=== PATIENT | female | born 1955 | race Caucasian/White ===

== ENCOUNTER 2016-09-04 22:36 | Inpatient (IN) | payer OTHER, MEDICAID ==
[~2016-09-04] VITALS: Ht 165.1 cm; Wt 81.6 kg
[~2016-09-04 22:36] MED LIST: ACET-868 PO; ATOR10TA PO; CLON0.1T PO; DIPH25CA6 PO; DOCU240C26 PO; IPRA3AMP IH; LEVO125T8 PO; MAGN400O6 PO; METH10TA2 PO; NIAC1000 PO; NICO1PAT25 TD; NITR0.4T6 SL; NYST5ORA PO; OXYB5TAB PO; OXYC-34 PO; QUET200T PO; RIVA10TA PO
--- NOTE | 2016-09-04 22:55 | NUR ---
To bed 6 61 yo female bibra, per ems patient was "ALTERED/STRIKING NAKED BEFORE STAFF." Patient is noted to be yelling, restless, agitated, nondirectable/does not follow commands, incoherent, verbalizing incomprehensible words. Safety measures initiated. Reorientation done to no avail. Gowned. cardiac monitor on. VSS. Nondiaphoretic. Afebrile. Awaiting for er md gonzalez.
[2016-09-04] MEDS ORDERED: LORAZEPAM INJ 2 MG/ML VIAL ONE (23:27)
[2016-09-04] MEDS ORDERED: LORAZEPAM INJ 2 MG/ML VIAL IM ONE (23:30)
[2016-09-04 23:37] LABS: BASOPHILS % (AUTO) 0.2 % (0.0-2.0); HEMATOCRIT 55 % (33-45); HEMOGLOBIN 17.8 g/dL (11.5-14.8); LYMPHOCYTES # (AUTO) 1.4 /CMM (0.8-4.8); LYMPHOCYTES % (AUTO) 9.2 % (20.0-44.0); MEAN CORPUSCULAR HEMOGLOBIN 31 PG (26.0-33.0); MEAN CORPUSCULAR HGB CONC 33 g/dl (31.0-36.0); MEAN CORPUSCULAR VOLUME 96 fL (82-100); MONOCYTES # (AUTO) 0.9 /CMM (0.1-1.30); MONOCYTES % (AUTO) 6.1 % (2.0-12.0); NEUTROPHILS # (AUTO) 12.7 /CMM (1.8-8.9); NEUTROPHILS % (AUTO) 84.5 % (43.0-81.0); PLATELET COUNT (AUTO) 381 /CMM (150-450); RDW COEFFICIENT OF VARIATION 14.8 (11.5-15.0); RED BLOOD CELL COUNT(AUTO) 5.71 MIL/uL (4.0-5.2)
[2016-09-04 23:51] LABS: CALCIUM, SERUM 10.2 mg/dL (8.5-10.1); CARBON DIOXIDE 27 mmol/L (21-32); CHLORIDE 97 mmol/L (98-107); CREATININE 0.8 mg/dL (0.6-1.3); GFR 73 mL/min (>60); GLUCOSE 139 mg/dL (74-106); POTASSIUM 3.8 mmol/L (3.5-5.1); SODIUM SERUM 135 mmol/L (136-145); UREA NITROGEN, BLOOD 13 mg/dL (7-18)
[2016-09-04 23:51] LABS: PHENCYCLIDINE SCREEN,URINE NEGATIVE (NEGATIVE)
[2016-09-04 23:56] LABS: CANNABINOID, URINE POSITIVE (NEGATIVE)
[2016-09-04 23:57] LABS: ACETAMINOPHEN 0 ug/ml (10-30); ALANINE AMINOTRANSFERASE 15 U/L (12-78); ALBUMIN 4.2 g/dL (3.4-5.0); ALCOHOL, BLOOD < 3 mg/dL (0-0); ALKALINE PHOSPHATASE 113 U/L (46-116); ASPARTATE AMINOTRANSFERASE 22 U/L (15-37); BILIRUBIN,DIRECT 0.1 mg/dL (0.0-0.2); BILIRUBIN,TOTAL 0.7 mg/dL (0.2-1.0); SALICYLATE 6.9 mg/dL (2.8-20.0); TOTAL PROTEIN, SERUM 8.2 g/dL (6.4-8.2)
[2016-09-04 23:58] LABS: APPEARANCE,URINE SL CLOUDY (CLEAR); BILIRUBIN,URINE 1+ (NEGATIVE); BLOOD, URINE 1+ Ery/uL (NEGATIVE); COLOR,URINE YELLOW (YELLOW); KETONES,URINE 2+ (NEGATIVE); LEUKOCYTE ESTERASE ,URINE NEGATIVE (NEGATIVE); NITRITE, URINE NEGATIVE (NEGATIVE); PROTEIN,URINE 2+ mg/dl (NEGATIVE); UGLUCOSE NEGATIVE (NEGATIVE); UROBILINOGEN,URINE 0.2 EU/dL (0.2)
[2016-09-04] MEDS ORDERED: HALOPERIDOL LACTATE INJ 5 MG/ML VIAL ONE (23:58)
[2016-09-05 00:09] LABS: ADD URINE CULTURE NO; BACTERIA,URINE None seen /HPF (None Seen); MUCUS,URINE Few /LPF (None Seen); SQUAMOUS EPITHELIAL CELL,UR Few /HPF (None Seen); WBC,URINE 0-2 /HPF (0-3)
--- NOTE | 2016-09-05 00:17 | NUR ---
xr at bedside.
--- NOTE | 2016-09-05 00:22 | NUR ---
patient went to ct.
[2016-09-05] MEDS ORDERED: diphenhydrAMINE HCL 50 MG/ML VIAL ONE ×2 (01:43→03:13)
[2016-09-05] MEDS ORDERED: LORAZEPAM INJ 2 MG/ML VIAL ONE ×2 (01:59→02:51)
[2016-09-05] MEDS ORDERED: diphenhydrAMINE HCL 50 MG/ML VIAL IV ONE ×2 (02:00→03:30)
[2016-09-05] MEDS ORDERED: LORAZEPAM INJ 2 MG/ML VIAL IV ONE ×2 (02:30→03:00)
[2016-09-05] MEDS ORDERED: HALOPERIDOL LACTATE INJ 5 MG/ML VIAL IM ONE ×2 (02:30)
[2016-09-05] MEDS ORDERED: HALOPERIDOL LACTATE INJ 5 MG/ML VIAL ONE (02:36)
--- NOTE | 2016-09-05 02:39 | NUR ---
DR. ELIZABETH REQUESTING REPEAT CT HEAD, PT STILL AGITATED, WILL CALL WHEN PT READY/SEDATED.
--- NOTE | 2016-09-05 03:19 | NUR ---
patient noted being restless, getting out of bed, nondirectable, yelling. Meds given as order by Dr Desouza. Close VSS monitoring ongoing.
[2016-09-05] MEDS ORDERED: MIDAZOLAM HCL 5 MG/5ML VIAL ONE (03:52)
[2016-09-05] MEDS ORDERED: MIDAZOLAM HCL 2 MG/2ML VIAL IV ONE (04:00)
--- NOTE | 2016-09-05 04:12 | NUR ---
CT scan of head wo contrast completed under moderate sedation, Versed 5mg IVP given. RT, 2 RN's, [address] Desouza in the room. No incident noted. Patent airway maintain. O2 inhalation at 4lpm via nc harjinder well, Ongoing VSS monitoring.
--- NOTE | 2016-09-05 04:17 | NUR ---
patient back to er bed [address] scan, ongoing VSS monitoring.
[2016-09-05] MEDS ORDERED: GABA-534 PO (05:14)
[2016-09-05] MEDS ORDERED: ALBU8.5H2 INH (05:14)
[2016-09-05] MEDS ORDERED: METH10OR11 PO (05:14)
[2016-09-05] MEDS ORDERED: DULO20CA PO (05:14)
[2016-09-05] MEDS ORDERED: ATOR40TA PO (05:14)
[2016-09-05] MEDS ORDERED: MUPI15CR12 TP (05:14)
[2016-09-05] MEDS ORDERED: IBUP-1482 PO (05:14)
[2016-09-05] MEDS ORDERED: CLOB15CR5 TP (05:14)
[2016-09-05] MEDS ORDERED: RIVA10TA PO (05:14)
[2016-09-05] MEDS ORDERED: CLON0.5T4 PO (05:14)
[2016-09-05] MEDS ORDERED: LACT10SO PO (05:14)
[2016-09-05] MEDS ORDERED: LEVO137T24 PO (05:14)
[2016-09-05] MEDS ORDERED: DOCU-25 PO (05:14)
[2016-09-05] MEDS ORDERED: FLUT1BLS IH (05:14)
[2016-09-05] MEDS ORDERED: OXYBUTYNIN PO (05:14)
[2016-09-05] MEDS ORDERED: DIVA250T6 PO (05:14)
[2016-09-05] MEDS ORDERED: NITR0.3T SL (05:14)
[2016-09-05] MEDS ORDERED: PHEN473S12 PO (05:14)
--- NOTE | 2016-09-05 05:15 | NUR ---
Report given to Yoly DOLAN for [facility].
[2016-09-05 05:30] VITALS: BP 153/95
--- NOTE | 2016-09-05 05:30 | NUR ---
RN- RECEIVED REPORT FROM KELSI CARRIZALES. PT IS DX W/ AMS DUE TO STRIKING AT [facility] STAFF AND TAKING OFF CLOTHES. ACCORDING TO RN, PT HAS BEEN UPGRADED TO [facility] STATUS DUE TO HIGH BP LEVEL W/ SBP'S IN THE 200 WHEN PT WAS BROUGHT UP IN 3W. VS TAKEN BP - 153/95 , HR 95, O2 SAT 92% ON RA AND RESP OF 12. PT IS CONFUSED, UNCOOPERATIVE, AND UNABLE TO FOLLOW COMMANDS. ANSWERS QUESTIONS INAPPROPRIATELY. ABLE TO MOVE LIMBS INDEPENDENTLY. PERRLA. R THUMB 22G PATENT AND INTACT. PLACED PT ON MONITOR W/ SR 90S. NO S/SX OF RESP DISTRESS NOTED. WILL MONITOR PT ACCORDINGLY
--- NOTE | 2016-09-05 05:39 | NUR ---
Transported to [facility] rm 113-2 under als protocol, Report given to Ethan DOLAN at bedside. Spontaneous movements seen in patient. No incident noted.
[2016-09-05] MEDS ORDERED: QUET100T PO (06:09)
[2016-09-05] MEDS ORDERED: MIRT30TA7 PO (06:09)
[2016-09-05] MEDS ORDERED: QUET400T PO (06:09)
[2016-09-05 08:00] VITALS: BP 187/100
[2016-09-05 08:02] LABS: BASOPHILS % (AUTO) 0.3 % (0.0-2.0); HEMATOCRIT 55 % (33-45); HEMOGLOBIN 18.3 g/dL (11.5-14.8); LYMPHOCYTES # (AUTO) 1.8 /CMM (0.8-4.8); LYMPHOCYTES % (AUTO) 13.1 % (20.0-44.0); MEAN CORPUSCULAR HEMOGLOBIN 32 PG (26.0-33.0); MEAN CORPUSCULAR HGB CONC 33 g/dl (31.0-36.0); MEAN CORPUSCULAR VOLUME 96 fL (82-100); MONOCYTES # (AUTO) 1.3 /CMM (0.1-1.30); MONOCYTES % (AUTO) 9.6 % (2.0-12.0); NEUTROPHILS # (AUTO) 10.5 /CMM (1.8-8.9); PLATELET COUNT (AUTO) 321 /CMM (150-450); RDW COEFFICIENT OF VARIATION 14.8 (11.5-15.0); WHITE BLOOD COUNT (AUTO) 13.7 K/uL (4.3-11.0)
[2016-09-05 08:24] LABS: ALBUMIN 4.1 g/dL (3.4-5.0); BILIRUBIN,TOTAL 0.8 mg/dL (0.2-1.0); CALCIUM, SERUM 9.7 mg/dL (8.5-10.1); CREATININE 0.8 mg/dL (0.6-1.3); POTASSIUM 3.2 mmol/L (3.5-5.1)
[2016-09-05] MEDS ORDERED: CLONIDINE HCL 0.1 MG TABLET PO PRN (09:00)
[2016-09-05] MEDS ORDERED: IV SET PRIMARY PUMP SET 1 EA INFUS.SET MC ONE (09:31)
[2016-09-05 09:33] LABS: BAND % (MANUAL) 2 % (0.0-5.0); BASOPHILS % (MANUAL) 0 % (0.0-2.0); EOSINOPHILS % (MANUAL) 0 % (0-4); LYMPHOCYTES % (MANUAL) 11 % (16-48); MONOCYTES % (MANUAL) 7 % (0-11.0); NEUTROPHILS % (MANUAL) 80 (42-76)
[2016-09-05 09:34] LABS: PLATELET ESTIMATE ADEQUATE
[2016-09-05 09:48] LABS: THYROID STIMULATING HORMONE 8.346 uIU/mL (0.358-3.74)
[2016-09-05] MEDS ORDERED: Z GUARD REMEDY 2 OZ OINT TP PRN (10:00)
--- NOTE | 2016-09-05 10:00 | NUR ---
WOUND CARE CONSULT: PATIENT SEEN AND SKIN ASSESSMENT DONE. SITTER AT THE BEDSIDE. PATIENT WITH ALTERED MENTAL STATUS, INDEPENDENT WITH BED MOBILITY, INCONTINENT, JAVIER 15. PATIENT PRESENTS ON ADMISSION WITH SKIN INTACT AT THIS TIME. RECOMMEND KEEP SKIN CLEAN AND DRY, MOISTURE PROTECTION WITH Z GUARD ORDERED DISCUSSED WITH NURSING STAFF. MD IN AGREEMENT WITH PLAN OF CARE.
[2016-09-05] MEDS: QUETIAPINE FUMARATE 100 MG TABLET PO SCH ×2 (11:11→22:16)
[2016-09-05] MEDS: AMLODIPINE BESYLATE 5 MG TABLET PO SCH (11:11)
[2016-09-05 12:00] VITALS: BP 151/95
[2016-09-05 16:00] VITALS: BP 145/85
[2016-09-05 20:00] VITALS: BP 130/75
--- NOTE | 2016-09-05 20:00 | NUR ---
RN INITIAL NOTES RECEIVED PT ASLEEP ON BED, EASILY AROUSABLE TO NAME AND TOUCH. PT IS VERY CONFUSED AND BECOMES AGITATED WHEN AWAKE. ON ROOM AIR, NO S/S OF RESP DISTRESS, SATURATING WELL. CURRENTLY SR ON THE MONITOR, HR 70-80'S. ON DIAPERS ONLY. RIGHT THUMB 20G WITH KCL 20MEQ IN 1/2NS @ 100MLS/HR, FLUSHED AND PATENT, NO S/S OF INFILTRATION/INFECTION, DRESSING CDI. BED LOW AND LOCKED, ALARM ON, SIDERAILS UP. 1:1 SITTER FOR THE PATIENT. WILL MONITOR
--- NOTE | 2016-09-05 21:10 | NUR ---
PT AGITATED, RESTLESS, SCREAMING AND TRYING TO GET OUT OF BED, CURRENTLY REFUSING SEROQUEL 25 MG PO. 1:1 SITTER REMAINS AT BEDSIDE. CALLED DR. VANEGAS AND OBTAINED ORDER FOR ZYPREXA 2.5 MG IM NOW (OK TO REPEAT DOSE IF FIRST DOSE IS INEFFECTIVE). ORDER PLACED. PRIMARY NURSE NAIN MADE AWARE. WILL CONTINUE TO MONITOR.
[2016-09-05] MEDS ORDERED: OLANZAPINE 10 MG VIAL IM ONE (21:30)
[2016-09-06] VITALS: BP 135/94
[2016-09-06] MEDS ORDERED: OLANZAPINE 10 MG VIAL IM ONE (03:49)
--- NOTE | 2016-09-06 03:50 | NUR ---
RN NOTES PT IS NOW VERY AGITATED, SCREAMING, AND COMBATIVE. WILL ADMINISTER THE ONE TIME ORDER OF ZYPREXA IM 25MG TO THE PATIENT
[2016-09-06 04:00] VITALS: BP 142/95
--- NOTE | 2016-09-06 06:30 | NUR ---
RN CLOSING NOTES PT REMAINS TO BE VERY CONFUSED AND AGITATED. AM CARE PROVIDED. WILL ENDORSE TO AM RN
--- NOTE | 2016-09-06 07:51 | NUR ---
INITIAL [facility] RN NOTE RCVD PT AWAKE AND ALERT, YELLING, APPEARS RESTLESS. SR ON TELE MONITOR HR 68. PT HAS SITTER AT BEDSIDE FOR SAFETY. RIGHT THUMB IV SITE. PT REFUSING ORDERED IVF. WILL CONTINUE TO MONITOR PT FOR SAFETY AND COMFORT. CALL LIGHT WITHIN REACH. BED IN LOW AND LOCKED POSITION.
[2016-09-06 08:00] VITALS: BP 163/92
[2016-09-06] MEDS ORDERED: ACETAMINOPHEN 325 MG TABLET PO PRN (08:30)
[2016-09-06] MEDS ORDERED: LORAZEPAM INJ 2 MG/ML VIAL IV PRN (09:00)
[2016-09-06 09:01] LABS: BASOPHILS # (AUTO) 0.1 /CMM (0.0-0.2); BASOPHILS % (AUTO) 0.7 % (0.0-2.0); EOSINOPHILS # (AUTO) 0.1 /CMM (0.0-0.7); EOSINOPHILS % (AUTO) 0.5 % (0.0-6.0); HEMATOCRIT 52 % (33-45); HEMOGLOBIN 17.2 g/dL (11.5-14.8); LYMPHOCYTES # (AUTO) 1.8 /CMM (0.8-4.8); LYMPHOCYTES % (AUTO) 15.9 % (20.0-44.0); MEAN CORPUSCULAR HEMOGLOBIN 32 PG (26.0-33.0); MEAN CORPUSCULAR HGB CONC 33 g/dl (31.0-36.0); MEAN CORPUSCULAR VOLUME 95 fL (82-100); MONOCYTES # (AUTO) 0.8 /CMM (0.1-1.30); NEUTROPHILS # (AUTO) 8.6 /CMM (1.8-8.9); NEUTROPHILS % (AUTO) 75.9 % (43.0-81.0); PLATELET COUNT (AUTO) 317 /CMM (150-450); RDW COEFFICIENT OF VARIATION 14.6 (11.5-15.0); RED BLOOD CELL COUNT(AUTO) 5.41 MIL/uL (4.0-5.2); WHITE BLOOD COUNT (AUTO) 11.3 K/uL (4.3-11.0)
[2016-09-06 09:10] LABS: CALCIUM, SERUM 9.3 mg/dL (8.5-10.1); CREATININE 0.8 mg/dL (0.6-1.3); POTASSIUM 3.7 mmol/L (3.5-5.1)
[2016-09-06] MEDS ORDERED: POTASSIUM CHLORIDE 20 MEQ TAB.PRT.SR PO ONE (09:30)
[2016-09-06] MEDS: AMLODIPINE BESYLATE 5 MG TABLET PO SCH (09:53)
[2016-09-06] MEDS ORDERED: MAG HYDROX/AL HYDROX/SIMETH 30 ML UDC PO PRN (11:30)
[2016-09-06] MEDS ORDERED: ONDANSETRON HCL/PF 4 MG/2 ML VIAL IV PRN (11:30)
--- NOTE | 2016-09-06 11:41 | NUR ---
[facility] RN NOTE PT C/O ABDOMINAL PAIN, NAUSE. DR. VANEGAS INFORMED. RCVD ORDERS FOR PRN ZOFRAN AND MAALOX.
[2016-09-06 12:00] VITALS: BP 139/76
[2016-09-06] MEDS ORDERED: OLANZAPINE 5 MG/TAB.RAPDIS PO SCH (14:30)
[2016-09-06] MEDS ORDERED: HALOPERIDOL LACTATE INJ 5 MG/ML VIAL IM PRN (14:30)
[2016-09-06 16:00] VITALS: BP 155/86
--- NOTE | 2016-09-06 18:02 | NUR ---
MS RN NOTE PT AWAKE AND ALERT TO SELF, SHOWING NO S/O DISTRESS, SITTER AT BEDSIDE FOR SAFETY. PT RE-ORIENTED TO PLACE, SITUATION AND TIME THROUGHOUT THE DAY. PSYCH EVAL COMPLETED. CRISIS TEAM CALLED IN. PT ASSESSED BY CRISIS ADMITTING COORDINATOR. PENDING POSSIBLE ADMISSION TO [facility]. DR. VANEGAS AWARE AND AGREES TO TRANSFER PT IF ACCEPTED. PT'S CARE WILL BE ENDORSED TO IN HOUSE COUNSEL RN FOR CONTINUITY OF CARE AT CHANGE OF SHIFT. BED IN LOW AND LOCKED POSITION. CALL LIGHT WITHIN REACH.
[2016-09-06 19:30] VITALS: BP 120/89
--- NOTE | 2016-09-06 19:30 | NUR ---
MS DOLAN INITIAL NOTES RECEIVED PATIENT YELLING, WALKING AROUND, DEMANDING. PATIENT AWAKE, A/OX1, AMBULATORY WITH STEADY GAIT. CONFUSED OF WHERE SHE IS. SITTER WITH PATIENT. ASSISTED PATIENT BACK INTO ROOM. REORIENTED PATIENT. PATIENT DENIES PAIN OR DISCOMFORT. DENIES SOB. SKIN WARM AND DRY TO TOUCH. WITH LH IV SITE PATENT AND INTACT. SIDE RAILS UP AND LOCKED. BED KEPT AT LOWEST POSITION. CALL LIGHT KEPT WITHIN EASY REACH. SITTER AT BEDSIDE. WILL CONTINUE TO MONITOR. Addendum: 09/06/16 at 2207 by SUGAR SANCHEZ RN PATIENT ON 5150 HOLD, PER REPORT PATIENT PENDING TRANSFER TO GPS.
--- NOTE | 2016-09-06 20:24 | NUR ---
PATIENT NOTED UP AND WALKING AROUND, YELLING AT NURSES STATION. DEMANDED TO CALL HER BOYFRIEND, OFFERED PATIENT PHONE BUT PATIENT DOES NOT REMEMBER NUMBER AND DEMANDS TO GET NUMBER FOR HER BOYFRIEND. PRN ATIVAN GIVEN. WILL CONTINUE TO MONITOR.
--- NOTE | 2016-09-06 20:30 | NUR ---
MS RN CLOSING NOTES PATIENT TRANSFERRED TO GPS, ASSISTED PATIENT VIA WHEELCHAIR. PATIENT IN STABLE CONDITION. IV REMOVED WITH NO COMPLICATIONS. PATIENT ON [address] LI. REPORT WAS GIVEN TO GLENN.
--- NOTE | 2016-09-06 21:35 | NUR ---
SPOKE WITH DR. VANEGAS INFORMED REGARDING PATIENTS TRANSFER WITH ORDERS TO CONTINUE ALL INPATIENT MEDICATIONS.
[2016-09-06] MEDS ORDERED: QUETIAPINE FUMARATE 100 MG TABLET PO SCH (22:00)
[2016-09-07] MEDS ORDERED: CLON0.1T14 PO (07:37)
[2016-09-07] MEDS ORDERED: MAG30ORA PO (07:37)
[2016-09-07] MEDS ORDERED: ONDA4TAB5 PO (07:37)
[2016-09-07] MEDS ORDERED: HALO5VIA12 IM (07:37)
[2016-09-07] MEDS ORDERED: QUET300T2 PO (07:37)
[2016-09-07] MEDS ORDERED: ACET-868 PO (07:37)
[2016-09-07] MEDS ORDERED: OLAN5TAB3 PO (07:37)
[2016-09-07] MEDS ORDERED: AMLO5TAB4 PO (07:37)
[2016-09-07] MEDS ORDERED: OLANZAPINE 5 MG/TAB.RAPDIS PO SCH (09:00)
== END 2016-09-06 21:00 | DRG 885 ==
LOC: ER 22:40 → TELE1 09-05 05:20 → TELE-TD 09-05 05:35 → MEDSG1 09-06 15:47
PROVIDERS: ADMIT Internal Medicine; ATTEND Internal Medicine
DX: F31.9 Bipolar disorder, unspecified (principal); F29 Unspecified psychosis not due to a substance or known physiological condition; I10 Essential (primary) hypertension; J44.9 Chronic obstructive pulmonary disease, unspecified; E03.9 Hypothyroidism, unspecified; Z86.73 Personal history of transient ischemic attack (TIA), and cerebral infarction without residual deficits; G89.29 Other chronic pain; D72.829 Elevated white blood cell count, unspecified
CPT/HCPCS: 36415; 70450-TC; 71010-TC; 80048-TC; 80053-TC; 80076-TC; 80305; 81000-TC; 84443-TC; 85025-TC; A4606; G0480; G6039-TC; J1200; J1630; J2060; J2250; J3480; J3490; Z7610

== ENCOUNTER 2016-09-06 21:12 | Inpatient (IN) | payer OTHER, MEDICAID ==
[~2016-09-06] VITALS: Ht 165.1 cm; Wt 82.1 kg
[2016-09-06 20:00] VITALS: BP 120/89
--- NOTE | 2016-09-06 20:30 | NUR ---
ADMITTED THIS 61Y/O FEMALE PATIENT FROM [facility]. PATIENT IS ON 5150 HOLD FOR GRAVELY DISABLED. PER HOLD PATIENT IS AGITATED, DISORGANIZED, CONFUSED. PATIENT STATED [place], THEN STATED SHE LIVES IN A PSYCHIATRIC FACILITY. PT UNABLE TO CARE FOR SELF. UPON FACE TO FACE ASSESSMENT. PATIENT IS A&OX2, AMBULATORY, DISORGANIZED, NEEDY, DEMANDING, ANXIOUS. V/S STABLE. RESPIRATION EVEN AND UNLABORED. NO SOB. PATIENT PSYCH DX OF PSYCHOSIS. MEDICAL DX OF HTN, HYPOTHYROID, COPD, ASTHMA, BREAST CANCER. HX OF DEPRESSION AND BIPOLAR. PATIENT IS UNDER THE PSYCHIATRIC CARE OF DR LI AND THE MEDICAL CARE OF DR VANEGAS. PATIENT BELONGINGS WERE INVENTORIED AND CHECKED FOR CONTRABAND. NO CONTRABAND. MRSA DONE. SKIN/BODY ASSESSMENT DONE. SKIN CLEAR AND INTACT. ALL NEEDS ATTENDED AND ANTICIPATED. BED IN LOW AND LOCKED POSITION. SIDERAILS UPX2. CALL CASTLE WITHIN REACH. WILL CONTINUE TO MONITOR FOR SAFETY AND BEHAVIOR [id number]. Addendum: 09/07/16 at 0153 by GLENN GONZALES RN VERIFIED ORDERS WITH DR. VANEGAS.
[~2016-09-06 21:12] MED LIST changes: -ACET-868 PO; +ALBU8.5H2 INH; +CLOB15CR5 TP; -CLON0.1T PO; -DIPH25CA6 PO; +DIVA250T6 PO; +DOCU-25 PO; -DOCU240C26 PO; +DULO20CA PO; +FLUT1BLS IH; +GABA-534 PO; +IBUP-1482 PO; -IPRA3AMP IH; +LACT10SO PO; -LEVO125T8 PO; +LEVO137T24 PO; -MAGN400O6 PO; +METH10OR11 PO; -METH10TA2 PO; +MIRT30TA7 PO; +MUPI15CR12 TP; -NIAC1000 PO; -NICO1PAT25 TD; +NITR0.3T SL; -NITR0.4T6 SL; -NYST5ORA PO; -OXYB5TAB PO; +OXYBUTYNIN PO; -OXYC-34 PO; +PHEN473S12 PO; +QUET100T PO; -QUET200T PO
[2016-09-06] MEDS ORDERED: MAGNESIUM HYDROXIDE 30 ML UDC PO PRN (21:30)
[2016-09-06] MEDS ORDERED: ACETAMINOPHEN 325 MG TABLET PO PRN (21:30)
[2016-09-06] MEDS ORDERED: MAG HYDROX/AL HYDROX/SIMETH 30 ML UDC PO PRN (21:30)
[2016-09-06] MEDS ORDERED: CLONIDINE HCL 0.1 MG TABLET PO PRN (22:30)
[2016-09-06] MEDS ORDERED: ONDANSETRON HCL 4 MG/5 ML SOLUTION PO PRN (22:30)
[2016-09-06] MEDS ORDERED: TEMAZEPAM 7.5 MG CAPSULE ONE (22:43)
[2016-09-06] MEDS ORDERED: clonazePAM 0.5 MG TABLET ONE (22:48)
[2016-09-06] MEDS: TEMAZEPAM 7.5 MG CAPSULE PO PRN (23:11)
[2016-09-07] MEDS: clonazePAM 0.5 MG TABLET PO PRN ×2 (00:58→12:00)
[2016-09-07 01:12] VITALS: BP 156/91
[2016-09-07] MEDS ORDERED: CLON0.1T14 PO (07:37)
[2016-09-07] MEDS ORDERED: HALO5VIA12 IM (07:37)
[2016-09-07] MEDS ORDERED: MAG30ORA PO (07:37)
[2016-09-07] MEDS ORDERED: ONDA4TAB5 PO (07:37)
[2016-09-07] MEDS ORDERED: QUET300T2 PO (07:37)
[2016-09-07] MEDS ORDERED: AMLO5TAB4 PO (07:37)
[2016-09-07] MEDS ORDERED: OLAN5TAB3 PO (07:37)
[2016-09-07] MEDS ORDERED: ACET-868 PO (07:37)
[2016-09-07 08:17] VITALS: BP 152/81
[2016-09-07] MEDS ORDERED: CLONIDINE HCL 0.1 MG TABLET PO PRN (08:30)
[2016-09-07] MEDS ORDERED: ACETAMINOPHEN 325 MG TABLET PO PRN (08:30)
[2016-09-07] MEDS ORDERED: IBUPROFEN 800 MG TABLET PO PRN (08:30)
[2016-09-07] MEDS ORDERED: Medication Not On Formulary EA (Ondansetron Hcl (Zofran) 4 MG) PO PRN (08:30)
[2016-09-07] MEDS ORDERED: NITROGLYCERIN 0.4 MG/TAB BOTTLE SL PRN (08:30)
[2016-09-07] MEDS ORDERED: MAG HYDROX/AL HYDROX/SIMETH 30 ML UDC PO PRN (08:30)
[2016-09-07] MEDS ORDERED: CODEINE/PROMETHAZINE HCL 5 ML UDC PO PRN (08:30)
[2016-09-07] MEDS ORDERED: DIVALPROEX SODIUM 250 MG TABLET.DR PO SCH (09:00)
[2016-09-07] MEDS ORDERED: DULOXETINE HCL 20 MG CAPSULE.DR PO SCH (09:00)
[2016-09-07] MEDS ORDERED: AMLODIPINE BESYLATE 5 MG TABLET PO SCH (09:00)
[2016-09-07] MEDS ORDERED: DOCUSATE SODIUM 100 MG CAPSULE PO SCH (09:00)
[2016-09-07] MEDS: OXYBUTYNIN CHLORIDE 5 MG TABLET PO SCH (09:50)
[2016-09-07] MEDS: LEVOTHYROXINE SODIUM 137 MCG TABLET PO SCH (09:50)
[2016-09-07] MEDS: AMLODIPINE BESYLATE 5 MG TABLET PO SCH (09:50)
[2016-09-07 10:25] LABS: ALBUMIN 3.7 g/dL (3.4-5.0); BILIRUBIN,TOTAL 0.6 mg/dL (0.2-1.0); CALCIUM, SERUM 9.1 mg/dL (8.5-10.1); CREATININE 0.7 mg/dL (0.6-1.3); TOTAL PROTEIN, SERUM 7.2 g/dL (6.4-8.2)
[2016-09-07] MEDS: DOCUSATE SODIUM 250 MG CAPSULE PO SCH ×2 (10:38→17:08)
--- NOTE | 2016-09-07 11:13 | NUR ---
DR. GOODEN GAVE AN ORDER FOR THE DENIAL RIGHTS FOR ROOM SEARCH TO LOOK FOR THE MISSING CORDLESS PHONES.
--- NOTE | 2016-09-07 12:01 | NUR ---
GPS RN: PATIENT IS RESTLESS, ANXIOUS, YELLING, UNABLE TO REDIRECT. CLONAZEPAM 0.5MG ADMINISTERED PO ORDERED, PROVIDED WITH CALM AND SAFE ENVIRONMENT, VSS, CONTINUE TO MONITOR.
[2016-09-07] MEDS ORDERED: ALBUTEROL FS 2.5 MG/3 ML VIAL.NEB NEB PRN (13:30)
[2016-09-07 16:18] VITALS: BP 158/94
[2016-09-07] MEDS ORDERED: METHADONE HCL 10 MG TABLET PO SCH (17:00)
[2016-09-07] MEDS: CLOBETASOL 0.05% CREAM 15 GM TUBE TP SCH (17:00)
[2016-09-07] MEDS: METHADONE HCL 10 MG TABLET PO SCH (17:09)
[2016-09-07] MEDS: OLANZAPINE 5 MG/TAB.RAPDIS PO SCH (17:09)
[2016-09-07] MEDS: RIVAROXABAN 10 MG TABLET PO SCH (17:11)
[2016-09-07 20:00] VITALS: BP 128/73
[2016-09-07] MEDS: DIVALPROEX SODIUM 125 MG CAP.SPRINK PO SCH (21:44)
[2016-09-07] MEDS: LACTULOSE 10 G/15 ML UDC (PYXIS) PO SCH (22:30)
[2016-09-07] MEDS: ATORVASTATIN 10 MG TABLET PO SCH (22:30)
[2016-09-07] MEDS: TEMAZEPAM 7.5 MG CAPSULE PO PRN (22:31)
[2016-09-07] MEDS: GABAPENTIN 300 MG CAPSULE PO SCH (22:31)
[2016-09-08 08:00] VITALS: BP 121/75
[2016-09-08] MEDS: AMLODIPINE BESYLATE 5 MG TABLET PO SCH (08:21)
[2016-09-08] MEDS: DIVALPROEX SODIUM 125 MG CAP.SPRINK PO SCH ×2 (08:21→21:50)
[2016-09-08] MEDS: LEVOTHYROXINE SODIUM 137 MCG TABLET PO SCH (08:21)
[2016-09-08] MEDS: OLANZAPINE 5 MG/TAB.RAPDIS PO SCH ×3 (08:21→16:49)
[2016-09-08] MEDS: OXYBUTYNIN CHLORIDE 5 MG TABLET PO SCH (08:22)
[2016-09-08] MEDS: METHADONE HCL 10 MG TABLET PO SCH ×2 (08:22→16:51)
[2016-09-08] MEDS: DOCUSATE SODIUM 250 MG CAPSULE PO SCH ×2 (08:22→16:51)
[2016-09-08] MEDS: clonazePAM 0.5 MG TABLET PO PRN ×2 (08:25→15:50)
[2016-09-08] MEDS: CLOBETASOL 0.05% CREAM 15 GM TUBE TP SCH ×2 (08:26→16:52)
--- NOTE | 2016-09-08 09:17 | NUR ---
GPS RN: PATIENT IS RESTLESS, YELLING, "IM GOING TO HAVE PANIC ATTACK" UNABLE TO REDIRECT. CLONAZEPAM 0.5MG ADMINISTERED PO ORDERED, PROVIDED WITH CALM AND SAFE ENVIRONMENT, VSS, CONTINUE TO MONITOR.
[2016-09-08 16:00] VITALS: BP 141/95
[2016-09-08] MEDS: RIVAROXABAN 10 MG TABLET PO SCH (16:50)
[2016-09-08 20:12] VITALS: BP 95/56
[2016-09-08] MEDS: ATORVASTATIN 10 MG TABLET PO SCH (21:49)
[2016-09-08] MEDS: LACTULOSE 10 G/15 ML UDC (PYXIS) PO SCH (21:49)
[2016-09-08] MEDS: GABAPENTIN 300 MG CAPSULE PO SCH (21:50)
--- NOTE | 2016-09-09 00:43 | NUR ---
Pt has been restless, hyperverbal, argumentative, fragmented, pacing at times, vague, & delusional but med compliant w/o any promptings.
[2016-09-09 06:49] LABS: BASOPHILS # (AUTO) 0.1 /CMM (0.0-0.2); BASOPHILS % (AUTO) 0.9 % (0.0-2.0); EOSINOPHILS # (AUTO) 0.2 /CMM (0.0-0.7); EOSINOPHILS % (AUTO) 2.9 % (0.0-6.0); HEMATOCRIT 47 % (33-45); HEMOGLOBIN 15.5 g/dL (11.5-14.8); LYMPHOCYTES # (AUTO) 3.2 /CMM (0.8-4.8); LYMPHOCYTES % (AUTO) 37.2 % (20.0-44.0); MEAN CORPUSCULAR HEMOGLOBIN 32 PG (26.0-33.0); MEAN CORPUSCULAR HGB CONC 33 g/dl (31.0-36.0); MEAN CORPUSCULAR VOLUME 96 fL (82-100); MONOCYTES # (AUTO) 0.8 /CMM (0.1-1.30); MONOCYTES % (AUTO) 8.9 % (2.0-12.0); NEUTROPHILS # (AUTO) 4.3 /CMM (1.8-8.9); NEUTROPHILS % (AUTO) 50.1 % (43.0-81.0); PLATELET COUNT (AUTO) 263 /CMM (150-450); RDW COEFFICIENT OF VARIATION 14.2 (11.5-15.0); RED BLOOD CELL COUNT(AUTO) 4.87 MIL/uL (4.0-5.2); WHITE BLOOD COUNT (AUTO) 8.5 K/uL (4.3-11.0)
[2016-09-09] MEDS ORDERED: LEVOTHYROXINE SODIUM 150 MCG TABLET PO SCH (07:30)
[2016-09-09 08:00] VITALS: BP 112/80
[2016-09-09] MEDS: METHADONE HCL 10 MG TABLET PO SCH ×2 (08:09→16:15)
[2016-09-09] MEDS: DOCUSATE SODIUM 250 MG CAPSULE PO SCH ×2 (08:10→16:14)
[2016-09-09] MEDS: LEVOTHYROXINE SODIUM 75 MCG TABLET PO SCH (08:10)
[2016-09-09] MEDS: OXYBUTYNIN CHLORIDE 5 MG TABLET PO SCH (08:10)
[2016-09-09] MEDS: DIVALPROEX SODIUM 125 MG CAP.SPRINK PO SCH ×2 (08:10→20:44)
[2016-09-09] MEDS: OLANZAPINE 5 MG/TAB.RAPDIS PO SCH ×3 (08:11→16:15)
[2016-09-09] MEDS: CLOBETASOL 0.05% CREAM 15 GM TUBE TP SCH ×2 (08:40→17:10)
[2016-09-09] MEDS: clonazePAM 0.5 MG TABLET PO PRN ×2 (09:03→13:23)
--- NOTE | 2016-09-09 09:05 | NUR ---
GPS/RN PATIENT SCREAMING UNCONTROLLABLY, GRUNTING, VERBALLY ABUSIVE, NON REDIRECTABLE, ADMINISTERED KLONOPIN PO ORDERED, WILL CONTINUE TO MONITOR.
[2016-09-09] MEDS: AMLODIPINE BESYLATE 5 MG TABLET PO SCH (10:03)
--- NOTE | 2016-09-09 10:38 | NUR ---
UR update: Patients 5150, facesheet, H&P, updated clinicals and medication list faxed to [facility] ([phone], fax [phone]). Will follow up
--- NOTE | 2016-09-09 13:25 | NUR ---
GPS/RN PATIENT AGITATED, ANXIOUS, NON REDIRECTABLE, ADMINISTERED KLONOPIN PO ORDERED, WILL CONTINUE TO MONITOR.
[2016-09-09 16:00] VITALS: BP 114/71
[2016-09-09] MEDS: RIVAROXABAN 10 MG TABLET PO SCH (16:16)
--- NOTE | 2016-09-09 16:58 | NUR ---
Initial discharge plan: Pt. resides at [address] [address] and wants to return upon discharge. SARATH left a voicemail for pt's son, Sean Shore [phone] notifying him of pt's admission. SARATH also confirmed with Cindy from facility that pt. will return back .SARATH will follow up with MD regarding discharge.
--- NOTE | 2016-09-09 17:00 | NUR ---
SW notified the facility of pt's discharge tomorrow. Spoke with Olimpia from [facility] [address] [place] [address] .
--- NOTE | 2016-09-09 17:19 | NUR ---
Discharge note: Pt. will discharge back on 09/10/16 to [facility] [address] [facility] [id number] via taxi. Pt. needs RX. Son, Sean [phone] has been notified via voicemail. Facility is also notified. Pt. has been provided a referral to [facility] [address], [address] [facility] 7:00 PM [phone] as she is a smoker. Pt. agrees with discharge plan and at this time denies suicidal/homicidal ideations. Pt. has been also provided with a resource to [facility] [address] [place] [address] . Discharge paper should be signed.
--- NOTE | 2016-09-09 20:04 | NUR ---
GPS/RN NOTE: PATIENT IS AMBULATING, STEADY GAIT. COOPERATIVE. NO APPARENT DISTRESS NOTED. BREATHING NON LABORED. NO COMPLAINTS MADE AT THIS TIME. AMBULATES IN AND OUT OF HER ROOM AND STAYS AT THE DINING AREA..
[2016-09-09] MEDS: LACTULOSE 10 G/15 ML UDC (PYXIS) PO SCH (20:46)
[2016-09-09] MEDS: GABAPENTIN 300 MG CAPSULE PO SCH (20:49)
[2016-09-09] MEDS: ATORVASTATIN 10 MG TABLET PO SCH (20:49)
--- NOTE | 2016-09-09 20:56 | NUR ---
GPS/RN NOTE: PATIENT CAME UP TO NURSE'S STATION ASKING FOR HER NIGHT MEDS. ORAL ROUTINE MIDICATIONS ADMINISTERED PER HER REQUEST.
[2016-09-09 21:28] VITALS: BP 127/96
[2016-09-10 08:25] VITALS: BP 118/84
[2016-09-10] MEDS: DOCUSATE SODIUM 250 MG CAPSULE PO SCH (08:25)
[2016-09-10] MEDS: LEVOTHYROXINE SODIUM 75 MCG TABLET PO SCH (08:25)
[2016-09-10] MEDS: DIVALPROEX SODIUM 125 MG CAP.SPRINK PO SCH (08:25)
[2016-09-10] MEDS: AMLODIPINE BESYLATE 5 MG TABLET PO SCH (08:25)
[2016-09-10] MEDS: METHADONE HCL 10 MG TABLET PO SCH (08:25)
[2016-09-10] MEDS: OXYBUTYNIN CHLORIDE 5 MG TABLET PO SCH (08:25)
[2016-09-10] MEDS: OLANZAPINE 5 MG/TAB.RAPDIS PO SCH ×2 (08:26→12:12)
--- NOTE | 2016-09-10 08:59 | NUR ---
UR Update: Updated clinicals and medication list faxed to [facility] ([phone], fax [phone]). Insurance informed of patient's discharge today. SW will follow up.
[2016-09-10] MEDS: CLOBETASOL 0.05% CREAM 15 GM TUBE TP SCH (10:19)
--- NOTE | 2016-09-10 13:21 | NUR ---
GPS/RN PATIENT CLEARED FOR DISCHARGE TO [facility] BY DR METZ AND DR VANEGAS. ALL DISCHARGE PAPER WORK EXPLAINED TO PATIENT, VERBALIZED UNDERSTANDING. PATIENT HAD NO BELONGINGS, PER ADMISSION BELONGING LIST. MEDICAL AND PSYCHIATRIC PRESCRIPTIONS CALLED INTO [facility], PSYCHIATRIC TREATMENT PLANS MET, PATIENT DENIES SI/HI/AH AT TIME OF DISCHARGE,AND INSTRUCTED TO GO TO NEAREST ER IF DEVELOPING SI/HI. LEFT UNIT CALM, COOPERATIVE, STABLE CONDITION, SORTING MACHINE OPERATOR AT SIDE, NO DISTRESS NOTED.
== END 2016-09-10 13:00 | DRG 885 ==
LOC: GPS 21:12
PROVIDERS: ADMIT Psychiatry & Neurology Psychosomatic Medicine; ATTEND Internal Medicine
DX: F31.60 Bipolar disorder, current episode mixed, unspecified (principal); F01.50 Vascular dementia, unspecified severity, without behavioral disturbance, psychotic disturbance, mood disturbance, and anxiety; E03.9 Hypothyroidism, unspecified; I10 Essential (primary) hypertension; Z86.73 Personal history of transient ischemic attack (TIA), and cerebral infarction without residual deficits; J44.9 Chronic obstructive pulmonary disease, unspecified; Z85.3 Personal history of malignant neoplasm of breast; G89.29 Other chronic pain; F29 Unspecified psychosis not due to a substance or known physiological condition; D72.829 Elevated white blood cell count, unspecified
CPT/HCPCS: 36415; 80053-TC; 85025-TC; 87081-TC; Q0162

== ENCOUNTER 2016-10-12 12:45 | Inpatient (IN) | payer OTHER, MEDICAID ==
[~2016-10-12] VITALS: Ht 165.1 cm; Wt 77.6 kg
[~2016-10-12 12:45] MED LIST changes: +ACET-868 PO; +AMLO5TAB4 PO; +CLON0.1T14 PO; +MAG30ORA PO; -MIRT30TA7 PO; -MUPI15CR12 TP; +ONDA4TAB5 PO; -QUET100T PO
--- NOTE | 2016-10-12 13:00 | NUR ---
BIBEMS FOR PSYCHE EVAL DUE TO SI. PATIENT IS AAO4. APPEARS IN NO APPARENT DISTRESS, RESPIRATION EVEN AND UNLABORED,. DID NOT VERBALIZE ACTUAL PLAN FOR SI. NO HI NOTED. SKIN IS WARM TO TOUCH AND NON DIAPHORETIC. AFEBRILE. GOWNED AND PLACED PT ON TELE MONITOR
--- NOTE | 2016-10-12 13:03 | NUR ---
CALLED CREDIT COLLECTION SPECIALIST -[facility]. ETA 1HR
[2016-10-12] MEDS ORDERED: ONDANSETRON HCL/PF 4 MG/2 ML VIAL ONE (13:14)
[2016-10-12] MEDS ORDERED: ONDANSETRON HCL/PF - ER 4 MG/2 ML VIAL IV ONE (13:30)
--- NOTE | 2016-10-12 13:33 | NUR ---
URINE SAMPLE SENT TO LAB
[2016-10-12 13:38] LABS: APPEARANCE,URINE Slightly Cloudy (CLEAR); BLOOD, URINE Negative Ery/uL (NEGATIVE); COLOR,URINE Dark (YELLOW); KETONES,URINE >=160 (NEGATIVE); LEUKOCYTE ESTERASE ,URINE Negative (NEGATIVE); NITRITE, URINE Negative (NEGATIVE); PH,URINE 8.5 (5.0-8.0); PROTEIN,URINE 30 mg/dl (NEGATIVE); UGLUCOSE Negative (NEGATIVE)
[2016-10-12 13:50] LABS: ACETAMINOPHEN 0 ug/ml (10-30); ALCOHOL, BLOOD < 3 mg/dL (0-0)
[2016-10-12 13:50] LABS: BILIRUBIN,URINE SMALL (NEGATIVE)
[2016-10-12] MEDS ORDERED: SULF1TAB48 PO (14:23)
[2016-10-12] MEDS ORDERED: HYDR-548 PO (14:23)
[2016-10-12] MEDS ORDERED: LEVO150T8 PO (14:23)
[2016-10-12] MEDS ORDERED: MIRT30TA7 PO (14:23)
[2016-10-12] MEDS ORDERED: QUET25TA PO (14:23)
[2016-10-12] MEDS ORDERED: OXYB5TAB29 PO (14:23)
[2016-10-12 14:26] LABS: BACTERIA,URINE Few /HPF (None Seen); RBC,URINE 0-2 /HPF (0-2); SQUAMOUS EPITHELIAL CELL,UR Rare /HPF (None Seen); WBC,URINE 0-2 /HPF (0-3)
[2016-10-12] MEDS ORDERED: BACL20TA PO (14:31)
[2016-10-12] MEDS ORDERED: DIVA500T7 PO (14:31)
[2016-10-12] MEDS ORDERED: MAG HYDROX/AL HYDROX/SIMETH 30 ML UDC PO PRN (15:30)
[2016-10-12] MEDS ORDERED: MAGNESIUM HYDROXIDE 30 ML UDC PO PRN (15:30)
[2016-10-12 15:31] VITALS: BP 161/96
[2016-10-12 16:00] VITALS: BP 161/96
--- NOTE | 2016-10-12 16:38 | NUR ---
ADMITTED A 61 YEARS OLD FEMALE FOR DTS. PER HOLD PT. VERBALIZED SHE IS DEPRESS AND HAVING SUICIDAL IDEATIONS AND SHE DON'T WANT TO LIVE ANYMORE. PT. ARRIVED IN THE UNIT VIA A GURNEY FROM ER . UPON FACE TO FACE EVALUATION PT. IS SELECTIVELY MUTE, POOR HISTORIAN' UNCOOPERATIVE, IRRITABLE AND RESTLESS. V/S TAKEN, REFUSED TO SIGN ADMISSION PAPERS, CONTRABAND, SKIN ASSESSMENT DONE AND SHOWER RENDERED. DR. LI COVERING FOR DR. METZ NOTIFIED AND GAVE ORDERS AND CHEPE DAVIS MADE NOTIFIED ABOUT THE ADMISSION AND TOLD TO RECONCILE MEDS. WILL CONTINUE TO MONITOR FOR SAFETY. Addendum: 10/12/16 at 1819 by BELKIS JIN RN CALLED LORA[facility] ROCHA AT [phone] AND LEFT A MESSAGE.
[2016-10-12 16:49] VITALS: BP 150/93
[2016-10-12] MEDS ORDERED: HYDROCODONE/APAP 10/325MG 1 EA TABLET PO PRN (18:00)
[2016-10-12] MEDS: DOCUSATE SODIUM 250 MG CAPSULE PO SCH (18:30)
[2016-10-12] MEDS ORDERED: NITROGLYCERIN 0.4 MG/TAB BOTTLE SL PRN (19:00)
[2016-10-12 20:00] VITALS: BP 148/82
--- NOTE | 2016-10-12 20:22 | NUR ---
GPS/RN NOTE: PATIENT REQUESTED FOR MILK OF MAGNESIA, 30 ML PO GIVEN, HAD NO BM X 2 DAYS.
[2016-10-12] MEDS: TEMAZEPAM 7.5 MG CAPSULE PO PRN (20:49)
--- NOTE | 2016-10-12 20:50 | NUR ---
GPS/RN NOTE: PATIENT HYPER LABILE, ANXIOUS. RESTORIL 7.5 MG CAP 1 PO GIVEN.
[2016-10-12] MEDS: LORAZEPAM 0.5 MG TABLET PO PRN (22:06)
--- NOTE | 2016-10-12 22:07 | NUR ---
GPS/RN NOTE: VERBALIZED FEELING VERY ANXIOUS, LORAZEPAM 0.5 MG TAB 1 PO GIVEN.
--- NOTE | 2016-10-12 22:12 | NUR ---
GPS/RN NOTE: PATIENT STILL AWAKE, AFTER RESTORIL WAS GIVEN.
[2016-10-12] MEDS ORDERED: LORAZEPAM INJ 2 MG/ML VIAL ONE (22:39)
--- NOTE | 2016-10-12 22:51 | NUR ---
GPS/RN NOTE: PATIENT STILL VERY ANXIOUS REQUESTING FOR ATIVAN IM INJECTION, MD WAS CALLED, DR LI, NEW ORDER GIVEN FOR ATIVAN 1 MG IM X1. ATIVAN 1 MG IM GIVEN PER PATIENT'S REQUEST.
[2016-10-12] MEDS ORDERED: LORAZEPAM INJ 2 MG/ML VIAL IM ONE (23:00)
[2016-10-13] MEDS: BACLOFEN (10 MG) 10 MG TABLET PO SCH ×5 (06:06→23:04)
[2016-10-13] MEDS ORDERED: LEVOTHYROXINE SODIUM 150 MCG TABLET PO SCH (07:30)
[2016-10-13 07:53] LABS: ALBUMIN 3.3 g/dL (3.4-5.0); BILIRUBIN,TOTAL 0.4 mg/dL (0.2-1.0); CALCIUM, SERUM 8.7 mg/dL (8.5-10.1); CREATININE 0.9 mg/dL (0.6-1.3); POTASSIUM 3.6 mmol/L (3.5-5.1); TOTAL PROTEIN, SERUM 7.2 g/dL (6.4-8.2)
[2016-10-13 08:00] VITALS: BP 135/98
[2016-10-13] MEDS: GABAPENTIN 300 MG CAPSULE PO SCH ×3 (08:00→16:19)
[2016-10-13] MEDS: DOCUSATE SODIUM 250 MG CAPSULE PO SCH ×2 (08:01→16:20)
[2016-10-13] MEDS: ATORVASTATIN 10 MG TABLET PO SCH (08:01)
[2016-10-13] MEDS: SULFAMETH/TRIMETH 800/160 MG 1 UDTAB TABLET PO SCH ×2 (08:01→16:21)
[2016-10-13] MEDS: OXYBUTYNIN CHLORIDE ER 5 MG TAB PO SCH (08:02)
[2016-10-13] MEDS ORDERED: VILANTEROL INH SCH (09:00)
[2016-10-13] MEDS ORDERED: RIVAROXABAN 10 MG TABLET PO SCH (09:00)
[2016-10-13] MEDS ORDERED: FLUTICASONE INH SCH (09:00)
--- NOTE | 2016-10-13 09:30 | NUR ---
[id number]: NOTIFIED DR. MCMILLAN ABOUT LAB RESULTS ON 10/12/16: URINE BILIRUBIN= SMALL, URINE UROBILINOGEN=1.0, BUN= 27, ALT= 11. NO NEW ORDERS GIVEN AT THIS TIME
[2016-10-13] MEDS ORDERED: DULOXETINE HCL 20 MG CAPSULE.DR PO SCH (11:30)
[2016-10-13] MEDS: DIVALPROEX SODIUM 500 MG TABLET.DR PO SCH ×2 (12:59→16:20)
[2016-10-13] MEDS: QUETIAPINE FUMARATE 25 MG TABLET PO SCH ×2 (12:59→16:20)
[2016-10-13] MEDS: METHADONE HCL 10 MG TABLET PO SCH ×2 (13:02→16:20)
[2016-10-13 16:00] VITALS: BP 111/75
[2016-10-13] MEDS: FLUTICASONE/SALMETEROL 1 DISK IH SCH (16:23)
[2016-10-13 20:26] VITALS: BP 97/51
[2016-10-13] MEDS: TEMAZEPAM 7.5 MG CAPSULE PO PRN (23:12)
--- NOTE | 2016-10-13 23:12 | NUR ---
GPS/RN NOTE: PATIENT C/O INSOMNIA, TEMAZEPAM 7.5 MG CAP PO GIVEN.
--- NOTE | 2016-10-14 00:13 | NUR ---
GPS/RN NOTE: C/O PAIN RIGHT FOOT, 6/10 ON PAIN SCALE, NORCO 10/325 MG 1 TAB PO GIVEN.
[2016-10-14] MEDS: ACETAMINOPHEN 325 MG TABLET PO PRN ×2 (03:05→22:35)
[2016-10-14] MEDS: BACLOFEN (10 MG) 10 MG TABLET PO SCH ×3 (06:00→18:00)
[2016-10-14 08:00] VITALS: BP 141/80
--- NOTE | 2016-10-14 08:10 | NUR ---
GPS/RN PATIENT ANXIOUS, AGITATED, YELLING, ADMINISTERED ATIVAN PO ORDERED, WILL CONTINUE TO MONITOR.
[2016-10-14] MEDS: LORAZEPAM 0.5 MG TABLET PO PRN (08:18)
[2016-10-14] MEDS: ATORVASTATIN 10 MG TABLET PO SCH (08:25)
[2016-10-14] MEDS: SULFAMETH/TRIMETH 800/160 MG 1 UDTAB TABLET PO SCH ×2 (08:26→17:00)
[2016-10-14] MEDS: LEVOTHYROXINE SODIUM 75 MCG TABLET PO SCH (08:26)
[2016-10-14] MEDS: METHADONE HCL 10 MG TABLET PO SCH ×2 (08:26→18:01)
[2016-10-14] MEDS: DOCUSATE SODIUM 250 MG CAPSULE PO SCH ×2 (08:26→18:02)
[2016-10-14] MEDS: GABAPENTIN 300 MG CAPSULE PO SCH ×3 (08:27→17:00)
[2016-10-14] MEDS: QUETIAPINE FUMARATE 25 MG TABLET PO SCH ×4 (08:27→18:04)
[2016-10-14] MEDS: OXYBUTYNIN CHLORIDE ER 5 MG TAB PO SCH (08:27)
[2016-10-14] MEDS: DULOXETINE HCL 30 MG CAPSULE.DR PO SCH (08:27)
[2016-10-14] MEDS: DIVALPROEX SODIUM 500 MG TABLET.DR PO SCH ×3 (08:27→17:00)
[2016-10-14] MEDS: FLUTICASONE/SALMETEROL 1 DISK IH SCH ×2 (08:51→18:13)
[2016-10-14 16:00] VITALS: BP 106/60
[2016-10-14] MEDS: RIVAROXABAN 10 MG TABLET PO SCH (17:00)
--- NOTE | 2016-10-14 18:00 | NUR ---
GPS/RN PATIENT HAD 1 EPISODE OF VOMITING, VITAL SIGNS STABLE, 160/64,HR 77, 02 97, DR MCMILLAN MADE AWARE, AWAITING RESPONSE, WILL CONTINUE TO MONITOR.
--- NOTE | 2016-10-14 18:15 | NUR ---
GPS/RN PATIENT SELECTIVE WITH MEDICATION, REFUSED ALL 1700 MEDICATIONS X 3 EXCEPT METHADONE 20 MG AND COLACE 250 MG. EXPLAINED RISKS AND BENEFITS, BUT CONTINUED TO REFUSE. WILL CONTINUE TO ENCOURAGE AND EDUCATE TO COMPLY WITH MD REGIMEN.
[2016-10-14 20:56] VITALS: BP 94/53
[2016-10-15] MEDS: TEMAZEPAM 7.5 MG CAPSULE PO PRN (01:20)
[2016-10-15] MEDS: BACLOFEN (10 MG) 10 MG TABLET PO SCH ×4 (01:44→18:00)
[2016-10-15 07:43] LABS: BASOPHILS # (AUTO) 0.1 /CMM (0.0-0.2); BASOPHILS % (AUTO) 0.4 % (0.0-2.0); EOSINOPHILS # (AUTO) 0.1 /CMM (0.0-0.7); EOSINOPHILS % (AUTO) 0.7 % (0.0-6.0); HEMATOCRIT 45 % (33-45); HEMOGLOBIN 14.9 g/dL (11.5-14.8); LYMPHOCYTES # (AUTO) 2.9 /CMM (0.8-4.8); LYMPHOCYTES % (AUTO) 18.6 % (20.0-44.0); MEAN CORPUSCULAR HEMOGLOBIN 32 PG (26.0-33.0); MEAN CORPUSCULAR HGB CONC 33 g/dl (31.0-36.0); MEAN CORPUSCULAR VOLUME 96 fL (82-100); MONOCYTES # (AUTO) 0.9 /CMM (0.1-1.30); MONOCYTES % (AUTO) 5.6 % (2.0-12.0); NEUTROPHILS # (AUTO) 11.6 /CMM (1.8-8.9); NEUTROPHILS % (AUTO) 74.7 % (43.0-81.0); PLATELET COUNT (AUTO) 327 /CMM (150-450); RDW COEFFICIENT OF VARIATION 14.5 (11.5-15.0); RED BLOOD CELL COUNT(AUTO) 4.69 MIL/uL (4.0-5.2); WHITE BLOOD COUNT (AUTO) 15.5 K/uL (4.3-11.0)
[2016-10-15 08:00] VITALS: BP 123/65
[2016-10-15 08:06] LABS: CALCIUM, SERUM 9.2 mg/dL (8.5-10.1); CREATININE 1.1 mg/dL (0.6-1.3); PHOSPHORUS 3.2 mg/dL (2.5-4.9); POTASSIUM 4.1 mmol/L (3.5-5.1)
[2016-10-15] MEDS: ATORVASTATIN 10 MG TABLET PO SCH (08:12)
[2016-10-15] MEDS: GABAPENTIN 300 MG CAPSULE PO SCH ×3 (08:14→16:21)
[2016-10-15] MEDS: QUETIAPINE FUMARATE 25 MG TABLET PO SCH ×3 (08:14→16:21)
[2016-10-15] MEDS: METHADONE HCL 10 MG TABLET PO SCH ×2 (08:14→16:22)
[2016-10-15] MEDS: DOCUSATE SODIUM 250 MG CAPSULE PO SCH ×2 (08:14→16:20)
[2016-10-15] MEDS: DULOXETINE HCL 30 MG CAPSULE.DR PO SCH (08:14)
[2016-10-15] MEDS: LEVOTHYROXINE SODIUM 75 MCG TABLET PO SCH (08:14)
[2016-10-15] MEDS: OXYBUTYNIN CHLORIDE ER 5 MG TAB PO SCH (08:14)
[2016-10-15] MEDS: SULFAMETH/TRIMETH 800/160 MG 1 UDTAB TABLET PO SCH ×2 (08:14→16:21)
[2016-10-15] MEDS: DIVALPROEX SODIUM 500 MG TABLET.DR PO SCH ×3 (08:14→16:21)
[2016-10-15] MEDS: FLUTICASONE/SALMETEROL 1 DISK IH SCH ×2 (09:08→16:42)
--- NOTE | 2016-10-15 11:14 | NUR ---
UR update: Patients 5150, facesheet, H&P, updated clinicals and medication list faxed to [facility] ([phone], fax [phone]). Will follow up
[2016-10-15 16:00] VITALS: BP 131/86
[2016-10-15] MEDS: RIVAROXABAN 10 MG TABLET PO SCH (16:27)
--- NOTE | 2016-10-15 16:52 | NUR ---
Initial discharge plan: Pt. resides at [address] [address] and wants to return upon discharge. SW left a voicemail for pt's son, Sean Shore [phone]. .SARATH will follow up with regarding discharge.
[2016-10-15 20:00] VITALS: BP_SYST 150; BP_SYST 99; BP_DIAS 56; BP_DIAS 80
[2016-10-15] MEDS: LORAZEPAM 0.5 MG TABLET PO PRN (21:46)
--- NOTE | 2016-10-15 21:58 | NUR ---
AT 2145 ,PT. C/O ANXIETY 0.5 MG PO PRN GIVEN
[2016-10-16] MEDS: BACLOFEN (10 MG) 10 MG TABLET PO SCH ×5 (01:09→23:14)
[2016-10-16] MEDS: TEMAZEPAM 7.5 MG CAPSULE PO PRN (01:54)
[2016-10-16] MEDS: LEVOTHYROXINE SODIUM 75 MCG TABLET PO SCH (07:55)
[2016-10-16 08:00] VITALS: BP 120/78
[2016-10-16] MEDS: QUETIAPINE FUMARATE 25 MG TABLET PO SCH ×3 (08:23→16:15)
[2016-10-16] MEDS: ATORVASTATIN 10 MG TABLET PO SCH (08:23)
[2016-10-16] MEDS: DULOXETINE HCL 30 MG CAPSULE.DR PO SCH (08:23)
[2016-10-16] MEDS: METHADONE HCL 10 MG TABLET PO SCH ×2 (08:24→16:15)
[2016-10-16] MEDS: DOCUSATE SODIUM 250 MG CAPSULE PO SCH ×2 (08:24→16:15)
[2016-10-16] MEDS: OXYBUTYNIN CHLORIDE ER 5 MG TAB PO SCH (08:24)
[2016-10-16] MEDS: DIVALPROEX SODIUM 500 MG TABLET.DR PO SCH ×3 (08:24→16:15)
[2016-10-16] MEDS: GABAPENTIN 300 MG CAPSULE PO SCH ×3 (08:25→16:15)
[2016-10-16] MEDS: FLUTICASONE/SALMETEROL 1 DISK IH SCH ×2 (08:28→16:32)
[2016-10-16] MEDS: LORAZEPAM 0.5 MG TABLET PO PRN (10:28)
--- NOTE | 2016-10-16 10:30 | NUR ---
ORDER FULFILLMENT SPECIALIST-NOTES PATIENT STATED" I'M ANXIOUS, I NEED MEDICATION TO CALM ME DOWN ". ATIVAN 0.5MG P.O GIVEN PRN ORDER. WILL CONT. MONITORING FOR SAFETY AND BEHAVIOR.
--- NOTE | 2016-10-16 11:39 | NUR ---
ATM MANAGER-NOTES DR. MCMILLAN SEEN THE PATIENT WITH THE ORDER FOR IV FLUID 1L AT 75ML/HR. DUE TO BUN RESULT OF 30. PATIENT MADE AWARE OF THE ORDER BUT REFUSED IV FLUID DESPITE EXPLANATIONS AND ENCOURAGEMENT. PATIENT STATED" I WILL DRINK MORE FLUID,I DON'T WANT ANY IV". DR. MCMILLAN MADE AWARE.
--- NOTE | 2016-10-16 11:51 | NUR ---
UR update: Ligia faxed updated clinicals and medication list faxed to [facility] ([phone], fax [phone]). Will follow up
--- NOTE | 2016-10-16 11:51 | NUR ---
Guy from [facility] [address] [place] [address] was notified of pt's discharge back tomorrow.
[2016-10-16 13:30] LABS: BASOPHILS % (AUTO) 0.3 % (0.0-2.0); EOSINOPHILS # (AUTO) 0.1 /CMM (0.0-0.7); EOSINOPHILS % (AUTO) 0.9 % (0.0-6.0); HEMATOCRIT 41 % (33-45); HEMOGLOBIN 13.6 g/dL (11.5-14.8); LYMPHOCYTES # (AUTO) 2.6 /CMM (0.8-4.8); LYMPHOCYTES % (AUTO) 23.6 % (20.0-44.0); MEAN CORPUSCULAR HEMOGLOBIN 31 PG (26.0-33.0); MEAN CORPUSCULAR HGB CONC 33 g/dl (31.0-36.0); MEAN CORPUSCULAR VOLUME 94 fL (82-100); MONOCYTES # (AUTO) 0.6 /CMM (0.1-1.30); MONOCYTES % (AUTO) 5.5 % (2.0-12.0); NEUTROPHILS # (AUTO) 7.7 /CMM (1.8-8.9); NEUTROPHILS % (AUTO) 69.7 % (43.0-81.0); PLATELET COUNT (AUTO) 365 /CMM (150-450); RDW COEFFICIENT OF VARIATION 14.6 (11.5-15.0); RED BLOOD CELL COUNT(AUTO) 4.36 MIL/uL (4.0-5.2)
[2016-10-16 16:13] VITALS: BP 124/88
[2016-10-16] MEDS: RIVAROXABAN 10 MG TABLET PO SCH (16:16)
[2016-10-16 20:00] VITALS: BP 108/71
[2016-10-17] MEDS: LORAZEPAM 0.5 MG TABLET PO PRN (00:13)
[2016-10-17] MEDS: BACLOFEN (10 MG) 10 MG TABLET PO SCH ×2 (05:26→12:03)
[2016-10-17] MEDS: DIVALPROEX SODIUM 500 MG TABLET.DR PO SCH ×2 (08:15→12:36)
[2016-10-17] MEDS: METHADONE HCL 10 MG TABLET PO SCH (08:16)
[2016-10-17] MEDS: DULOXETINE HCL 30 MG CAPSULE.DR PO SCH (08:17)
[2016-10-17] MEDS: GABAPENTIN 300 MG CAPSULE PO SCH ×2 (08:18→12:36)
[2016-10-17] MEDS: QUETIAPINE FUMARATE 25 MG TABLET PO SCH ×2 (08:18→12:36)
[2016-10-17] MEDS: DOCUSATE SODIUM 250 MG CAPSULE PO SCH (08:18)
[2016-10-17] MEDS: OXYBUTYNIN CHLORIDE ER 5 MG TAB PO SCH (08:19)
[2016-10-17] MEDS: ATORVASTATIN 10 MG TABLET PO SCH (08:19)
[2016-10-17] MEDS: LEVOTHYROXINE SODIUM 75 MCG TABLET PO SCH (08:19)
[2016-10-17] MEDS: FLUTICASONE/SALMETEROL 1 DISK IH SCH (08:22)
[2016-10-17 08:26] VITALS: BP 142/95
--- NOTE | 2016-10-17 11:28 | NUR ---
DR. METZ GAVE AN ORDER TO D/C HOLD AND D/C TO [facility]. WITHOUT DISTRESS, DENIES SUICIDAL AND HOMICIDAL.DR. MCMILLAN MADE AWARE OF THE DISCHARGE AND SAID OK FOR DISCHARGE AND WROTE A PRESCRIPTIONS. PT. SIGNED THE DISCHARGE PAPERS, PICTURES TAKEN FOR SKIN ISSUES AND BELONGINGS READY. WILL CONTINUE TO MONITOR FOR SAFETY.
--- NOTE | 2016-10-17 14:38 | NUR ---
Discharge note: Pt. will discharge today back to [facility] [address] [facility] [place] [id number] Pt's son, Sean Shore [phone] was notified via voicemail. Pt. agreed with discharge plan and reported feeling much better with no suicidal/homicidal ideations. Pt. was calm and cooperative. Facility was notified of pt's return and agreed. SW signed the continuing care form and discharge instructions will be provided to the patient. Pt. is a smoker, hence, is referred to [facility] and will attend [facility] on Friday at 6:00 PM by calling [phone] PIN: [id number] This information was provided to the patient and pt. agreed to attend via telephone as it is easier for her to participate without having to physically attend. Addendum: 10/17/16 at 1500 by LUPE CLEMENS Pt. will be followed by Dr. Cecilia Donnelly [id number] [facility] [address] [place] [address] .
[2016-10-17 16:00] VITALS: BP 125/91
--- NOTE | 2016-10-17 16:10 | NUR ---
Pt. left the unit via a taxi and transported via wheel chair to the lobby by staff with belongings. Pt. instructed on meds to continue and verbalize understanding and advised to make a follow up to his psychiatrist and medical doctors and agreed. V/S taken: 125/91, temp. 98.3, RR 19, ND 73 and oxygen sat 97%. Left without distress and on stable condition.
== END 2016-10-17 16:10 | DRG 885 ==
LOC: ER 12:47 → GPS 14:40
PROVIDERS: ADMIT Psychiatry & Neurology Psychiatry; ATTEND Family Medicine
DX: F31.30 Bipolar disorder, current episode depressed, mild or moderate severity, unspecified (principal); E44.0 Moderate protein-calorie malnutrition; Z86.73 Personal history of transient ischemic attack (TIA), and cerebral infarction without residual deficits; J44.9 Chronic obstructive pulmonary disease, unspecified; E03.9 Hypothyroidism, unspecified; E66.9 Obesity, unspecified; G89.4 Chronic pain syndrome; I10 Essential (primary) hypertension; R32 Unspecified urinary incontinence; Z85.3 Personal history of malignant neoplasm of breast; Z86.711 Personal history of pulmonary embolism; Z90.13 Acquired absence of bilateral breasts and nipples; F29 Unspecified psychosis not due to a substance or known physiological condition; Z73.6 Limitation of activities due to disability; E88.09 Other disorders of plasma-protein metabolism, not elsewhere classified; Z68.28 Body mass index [BMI] 28.0-28.9, adult
CPT/HCPCS: 36415; 71010-TC; 80048-TC; 80053-TC; 80305; 81000-TC; 83735-TC; 84100-TC; 85025-TC; A4606; G0480; G6039-TC; J2060; J2405; Z7610